=== PATIENT | female | born 1950 | race Caucasian/White ===

== ENCOUNTER 2018-05-20 01:48 | Emergency (ER) | payer MEDICARE | END 2018-05-20 03:23 | disposition home or self-care (01) | LOC: M ED 01:48 | DX: H54.61 Unqualified visual loss, right eye, normal vision left eye (principal); Z88.5 Allergy status to narcotic agent; Z88.8 Allergy status to other drugs, medicaments and biological substances | CPT/HCPCS: 99282 ==